=== PATIENT | female | born 1990 | race Hispanic/Latino ===

== ENCOUNTER 2018-02-05 23:23 | Observation (INO) | payer BC, SELFPAY ==
[2018-02-06] MEDS ORDERED: ONDANSETRON 4 MG/2 ML VIAL ONE ×2 (00:01→02:07)
[2018-02-06] MEDS ORDERED: KETOROLAC 30 MG/ML INJ ONE (00:01)
[2018-02-06 00:29] LABS: Absolute Lymphocytes (CBC) 3.1 K/uL (0.7-4.9); Absolute Monocytes 0.9 K/uL (0.1-1.3); Absolute Neutrophil 10.7 K/uL (1.8-8.0); Basophils % 0.4 % (0-1.3); Eosinophils % 1.2 % (0-4.4); Hematocrit 37.6 % (36.0-45.0); Lymphocytes % 20.6 % (15.3-44.8); MCH 32.4 pg (27.0-35.0); MCV 91.3 fL (80-100); MPV 8.3 fL (7.6-11.3); Monocytes % 5.8 % (3.3-12.3); RBC Red Blood Cell Count 4.12 M/uL (3.86-4.86)
[2018-02-06 00:44] LABS: Urine Blood 3+ (NEG); Urine Glucose NEGATIVE (NEG); Urine Protein 3+ (NEG); Urine Specific Gravity >1.030 (1.005-1.030); Urine pH 5.5 (5.0-7.0)
[2018-02-06 00:46] LABS: BUN Blood Urea Nitrogen 13 mg/dL (7-18); Bicarbonate 28 mmol/L (21-32); Glucose Level 134 mg/dL (74-106); Potassium 3.5 mmol/L (3.5-5.1); Sodium Level 140 mmol/L (136-145)
[2018-02-06 01:14] LABS: Urine Bacteria 20-50 /HPF (<20); Urine Culture Reflex Order NOT NEEDED; Urine RBC TNTC /HPF (NONE SEEN)
[2018-02-06] MEDS ORDERED: MORPHINE 4 MG/ML SYR ONE (02:07)
[2018-02-06] MEDS ORDERED: CEFTRIAXONE/SWI 1gm 1 GM/10 ML SYR ONE (02:07)
--- NOTE | 2018-02-06 02:27 | EDPHYS ---
Physician Documentation [facility] Name: Cinthya Diaz Age: 27 yrs Sex: Female : 1990 Arrival Date: 02/05/2018 Time: 23:28 Bed 14 Private MD: ED Physician Jett Carlos HPI: 02/05 23:51 This 27 yrs old Female presents to ER via Ambulatory with complaints of ps1 Abdominal Pain, Vomiting, Vaginal Bleeding. 23:51 has left flank pain that radiates to groin. On her cycle. Has normal amount of flow. ps1 Additionally has urinary frequency. No hx of stones. Pain rated as severe. No remitting factors, worse with movement. Denies . . 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 - Social history:: Smoking status: Patient/guardian denies using tobacco. - Ebola Screening: : Patient negative for fever greater than or equal to 101.5 degrees Fahrenheit, and additional compatible Ebola Virus Disease symptoms Patient denies exposure to infectious person Patient denies travel to an Ebola-affected area in the 21 days before illness onset. ROS: 23:51 Constitutional: Negative for fever, chills, and weight loss, Eyes: Negative for injury, ps1 pain, redness, and discharge, Cardiovascular: Negative for chest pain, palpitations, and edema, Respiratory: Negative for shortness of breath, cough, wheezing, and pleuritic chest pain, Abdomen/GI: Negative for abdominal pain, nausea, vomiting, diarrhea, and constipation, MS/Extremity: Negative for injury and deformity, Skin: Negative for injury, rash, and discoloration, Neuro: Negative for headache, weakness, numbness, tingling, and seizure, Psych: Negative for depression, anxiety, suicide ideation, homicidal ideation, and hallucinations. 23:51 : Positive for flank pain, urinary frequency, menstruation. Exam: 23:51 Constitutional: This is a well developed, well nourished patient who is awake, alert, ps1 and in no acute distress. Head/Face: Normocephalic, atraumatic. Eyes: Pupils equal round and reactive to light, extra-ocular motions intact. Lids and lashes normal. Conjunctiva and sclera are non-icteric and not injected. Chest/axilla: Normal chest wall appearance and motion. Nontender with no deformity. No lesions are appreciated. Cardiovascular: Regular rate and rhythm. No gallops, murmurs, or rubs. Normal PMI, no JVD. No pulse deficits. Respiratory: Lungs have equal breath sounds bilaterally, clear to auscultation and percussion. No rales, rhonchi or wheezes noted. No increased work of breathing, no retractions or nasal flaring. Abdomen/GI: Soft, non-tender, with normal bowel sounds. No distension or tympany. No guarding or rebound. No evidence of tenderness throughout. 23:51 Back: pain, that is very mild, of the left mid back, CVA tenderness, that is moderate. Vital Signs: 23:47 BP 126 / 64; Pulse 73; Resp 18; Temp 97.6(O); Pulse Ox 100% on R/A; Weight 65.77 kg fc (R); Height 5 ft. 0 in. (152.40 cm) (R); Pain 05/08; 11 00:09 BP 116 / 76; Pulse 56; Resp 16; Pulse Ox 99% ; bp 00:45 BP 108 / 68; Pulse 53; Resp 12; Pulse Ox 99% ; bp 01:30 BP 110 / 75; Pulse 66; Resp 14; Pulse Ox 100% ; bp 02:30 BP 100 / 71; Pulse 61; Resp 14; Pulse Ox 97% ; bp 04:00 BP 92 / 49; Pulse 83; Resp 14; Pulse Ox 99% ; bp 05:00 BP 86 / 52; Pulse 74; Resp 14; Pulse Ox 96% ; bp 05:41 BP 89 / 52; Pulse 96; Resp 20; Temp 98.0(O); Pulse Ox 100% on R/A; Pain 0/10; fc 05:48 BP 99 / 59; Pulse 86; Resp 20; Pulse Ox 100% on R/A; Pain 0/10; fc 07/10 23:47 Body Mass Index 28.32 (65.77 kg, 152.40 cm) MDM: 00:20 Patient medically screened. [facility] 02:26 Data reviewed: vital signs, nurses notes, lab test result(s), electrolytes, urinalysis, ps1 bacteruria, radiologic studies, CT scan, and as a result, I will admit patient, administer antibiotics Rocephin, administer IV fluids. 02/05 23:55 Order name: Basic Metabolic Panel; Complete Time: 00:58 ps1 02/05 23:55 Order name: CBC with Diff; Complete Time: 00:40 ps1 02/05 23:55 Order name: Stone Protocol CT ps1 02/06 00:19 Order name: Urine Dipstick--Ancillary (enter results); Complete Time: 00:46 ms 02/06 00:19 Order name: Urine --Ancillary (enter results); Complete Time: 00:46 ms 02/06 00:27 Order name: UA MICROSCOPIC; Complete Time: 01:52 bp 02/05 23:55 Order name: Urine Test (obtain specimen); Complete Time: 00:20 ps1 02/05 23:55 Order name: IV Saline Lock; Complete Time: 00:08 ps1 02/05 23:55 Order name: Labs collected and sent; Complete Time: 00:08 ps1 02/05 23:55 Order name: NPO; Complete Time: 00:08 ps1 02/05 23:55 Order name: Urine Dipstick-Ancillary (obtain specimen); Complete Time: 00:20 ps1 Administered Medications: 00:08 Drug: Ketorolac 30 mg Route: IVP; Site: right forearm; bp 00:20 Follow up: Response: Pain is decreased bp 00:08 Drug: Zofran 4 mg Route: IVP; Site: right forearm; bp 00:20 Follow up: Response: Pain is decreased bp 02:09 Drug: Rocephin - (cefTRIAXone) 1 grams Route: IVPB; Infused Over: 30 mins; Site: right bp forearm; 02:45 Follow up: IV Status: Completed infusion bp 02:10 Drug: morphine 4 mg Route: IVP; Site: right forearm; bp 02:45 Follow up: Response: Pain is decreased bp 02:10 Drug: Zofran 4 mg Route: IVP; Site: right forearm; bp 02:45 Follow up: Response: Nausea is decreased bp Disposition: 02/06/18 02:26 Hospitalization ordered by Kevin Causey for Inpatient Admission. Preliminary diagnosis are Acute cystitis with hematuria, Hydronephrosis with renal and ureteral calculous obstruction, leukocytosis. - Bed requested for Telemetry/MedSurg (Inpatient). - Status is Inpatient Admission. fc - Condition is Stable. - Problem is new. - Symptoms are unchanged. UTI on Admission? Yes Signatures: Dispatcher [employer] EDMS Minal Alfredo RN RN Rosaura Ch, RN RN Tate Espinosa RN Jett Adhikari MD MD ps1 Corrections: (The following items were deleted from the chart) 03:23 02:26 Hospitalization Ordered by Kevin Causey MD for Inpatient Admission. Preliminary mw diagnosis is Acute cystitis with hematuria; Hydronephrosis with renal and ureteral calculous obstruction; leukocytosis. Bed requested for Telemetry/MedSurg (Inpatient). Status is Inpatient Admission. Condition is Stable. Problem is new. Symptoms are unchanged. UTI on Admission? Yes. ps1 06:03 03:23 02/06/2018 02:26 Hospitalization Ordered by Kevin Causey MD for Inpatient fc Admission. Preliminary diagnosis is Acute cystitis with hematuria; Hydronephrosis with renal and ureteral calculous obstruction; leukocytosis. Bed requested for Telemetry/MedSurg (Inpatient). Status is Inpatient Admission. Condition is Stable. Problem is new. Symptoms are unchanged. UTI on Admission? Yes. clive
--- NOTE | 2018-02-06 02:27 | ER ---
Nurse's Notes [facility] Name: Cinthya Diaz Age: 27 yrs Sex: Female : 1990 Arrival Date: 02/05/2018 Time: 23:28 Bed 14 Private MD: Diagnosis: Acute cystitis with hematuria;Hydronephrosis with renal and ureteral calculous obstruction;leukocytosis Presentation: 02/05 23:44 Presenting complaint: Patient states: that she is having severe abdominal pain that fc radiates around to back. She is also having nausea and vomiting. Her period was late but she is current having a heavy menstrual flow. Transition of care: patient was not received from another setting of care. Onset of symptoms was February 05, 2018. Risk Assessment: Do you want to hurt yourself or someone else? Patient reports no desire to harm self or others. Initial Sepsis Screen: Does the patient meet any 2 criteria? No. Patient's initial sepsis screen is negative. Does the patient have a suspected source of infection? No. Patient's initial sepsis screen is negative. Care prior to arrival: None. 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 - Social history:: Smoking status: Patient/guardian denies using tobacco. - Ebola Screening: : Patient negative for fever greater than or equal to 101.5 degrees Fahrenheit, and additional compatible Ebola Virus Disease symptoms Patient denies exposure to infectious person Patient denies travel to an Ebola-affected area in the 21 days before illness onset. Screenin:48 Abuse screen: Denies threats or abuse. Nutritional screening: No deficits noted. fc Tuberculosis screening: No symptoms or risk factors identified. Fall Risk None identified. Assessment: 23:49 General: Appears in no apparent distress. uncomfortable, Behavior is calm, cooperative, bp appropriate for age. Pain: Complains of pain in pelvis. Neuro: Level of Consciousness is awake, alert, obeys commands, Oriented to person, place, time, situation, Appropriate for age. Cardiovascular: No deficits noted. Respiratory: Airway is patent Respiratory effort is even, unlabored, Respiratory pattern is regular, symmetrical. GI: Bowel sounds present X 4 quads. Abd is soft Abdomen is tender to palpation X 4 quads. : Reports urgency, vaginal bleeding that is heavy flow. EENT: No deficits noted. Derm: No deficits noted. Musculoskeletal: Circulation, motion, and sensation intact. Range of motion: intact in all extremities. 02/06 00:45 Reassessment: PT TO CT. bp 01:45 Reassessment: ALL CURRENT ORDERS COMPLETED, DISPO PENDING. bp 02:30 Reassessment: ADMIT IN PROCESS, ORDERS PENDING. bp 04:04 Reassessment: ADMIT IN PROCESS, BED ASSIGNED, ORDERS PENDING. bp 05:00 Reassessment: ADMIT IN PROCESS, PT RESTING QUIETLY, ADMIT ORDERS PENDING. bp 05:49 Reassessment: Dr Causey at bedside to talk with pt. Vital Signs: 02/05 23:47 BP 126 / 64; Pulse 73; Resp 18; Temp 97.6(O); Pulse Ox 100% on R/A; Weight 65.77 kg fc (R); Height 5 ft. 0 in. (152.40 cm) (R); Pain 10; 02/06 00:09 BP 116 / 76; Pulse 56; Resp 16; Pulse Ox 99% ; bp 00:45 BP 108 / 68; Pulse 53; Resp 12; Pulse Ox 99% ; bp 01:30 BP 110 / 75; Pulse 66; Resp 14; Pulse Ox 100% ; bp 02:30 BP 100 / 71; Pulse 61; Resp 14; Pulse Ox 97% ; bp 04:00 BP 92 / 49; Pulse 83; Resp 14; Pulse Ox 99% ; bp 05:00 BP 86 / 52; Pulse 74; Resp 14; Pulse Ox 96% ; bp 05:41 BP 89 / 52; Pulse 96; Resp 20; Temp 98.0(O); Pulse Ox 100% on R/A; Pain 0/10; fc 05:48 BP 99 / 59; Pulse 86; Resp 20; Pulse Ox 100% on R/A; Pain 0/10; fc 02/05 23:47 Body Mass Index 28.32 (65.77 kg, 152.40 cm) ED Course: 02/05 23:28 Patient arrived in ED. es 23:44 Jett Carlos MD is Attending Physician. ps1 23:46 Tate Espinosa, RN is Primary Nurse. bp 23:46 Triage completed. fc 23:47 Arm band placed on Patient placed in an exam room, on a stretcher. fc 23:48 Patient has correct armband on for positive identification. Bed in low position. Call light in reach. 02/06 00:09 Inserted saline lock: 20 gauge in right forearm, using aseptic technique. Blood bp collected. 00:[address] In Process Unspecified. EDMS 02:26 Kevin Causey MD is Hospitalizing Provider. ps1 04:02 No provider procedures requiring assistance completed. Patient admitted, IV remains in bp place. Administered Medications: 00:08 Drug: Ketorolac 30 mg Route: IVP; Site: right forearm; bp 00:20 Follow up: Response: Pain is decreased bp 00:08 Drug: Zofran 4 mg Route: IVP; Site: right forearm; bp 00:20 Follow up: Response: Pain is decreased bp 02:09 Drug: Rocephin - (cefTRIAXone) 1 grams Route: IVPB; Infused Over: 30 mins; Site: right bp forearm; 02:45 Follow up: IV Status: Completed infusion bp 02:10 Drug: morphine 4 mg Route: IVP; Site: right forearm; bp 02:45 Follow up: Response: Pain is decreased bp 02:10 Drug: Zofran 4 mg Route: IVP; Site: right forearm; bp 02:45 Follow up: Response: Nausea is decreased bp Outcome: 02:26 Decision to Hospitalize by Provider. ps1 05:41 Admitted to Med/surg accompanied by tech, room 228, with chart, Report called to Quita ochoa RN 05:41 Condition: good 05:41 Discharge instructions given to family, Instructed on the need for admit, Demonstrated understanding of instructions. 06:03 Patient left the ED. Signatures: Dispatcher [employer] EDOH Tenisha Dupree Felicia, RN DWAIN Tate Espinosa, DWAIN RN Jett Carlos MD MD ps1
[2018-02-06] MEDS ORDERED: KETOROLAC 30 MG/ML INJ IV PRN (05:59)
[2018-02-06] MEDS ORDERED: ACETAMINOPHEN 650MG/RECT SUPP RECT PRN (05:59)
[2018-02-06] MEDS ORDERED: ONDANSETRON 4 MG/2 ML VIAL IV PRN (05:59)
--- NOTE | 2018-02-06 05:59 | P.HP ---
Certification for Inpatient Patient admitted to: Inpatient With expected LOS: >2 Midnights Practitioner: I am a practitioner with admitting privileges, knowledge of patient current condition, hospital course, and medical plan of care. Services: Services provided to patient in accordance with Admission requirements found in Title 42 Section 412.3 of the Code of Federal Regulations Patient History Date of Service: 02/06/18 Reason for admission: left hydronephrosis History of Present Illness: Ms Diaz is a 27 years old woman with quite healthy past medical history, who start with severe lower abdominal pain, radiated to her back, 10/10 of intensity , constant, associated with nausea and vomiting. She also noted some blood when she went to the restroom, and she though that was her menstrual period, that is actually delayed. She denied fever but has had chills. Lab work remarkable for leukocytosis 14.9K, normal renal function, UA with increased RBC. No fever at arrival to ED. Allergies Penicillins Adverse Reaction (Mild, Verified 11/26/12 21:17) Nausea/Vomiting Home medications list reviewed: Yes Home Medications: Ascorbic Acid [Vitamin C*] 500 mg PO DAILY 07/22/13 Ferrous Sulfate [Iron] 1 PO BID 07/22/13 Vit37/Iron/Folic Acid [Prenata Chewable Tablet] 1 PO DAILY 07/22/13 Hydrocodone 5/APAP 325 [Tilden 5/325*] 1 tab PO Q6H PRN #20 tab 07/23/13 - Past Medical/Surgical History Diabetic: No Past Medical History: Reviewed- Non-Contributory Past Surgical History: Reviewed- Non-Contributory - Family History Family History: Reviewed- Non-Contributory - Social History Smoking Status: Never smoker Alcohol use: Yes CD- Drugs: No Place of Residence: Home Review of Systems 10-point ROS is otherwise unremarkable Physical Examination - Physical Exam General: Alert, In no apparent distress HEENT: Atraumatic, PERRLA, Mucous membr. moist/pink, EOMI, Sclerae nonicteric Neck: Supple, 2+ carotid pulse no bruit, No LAD, Without JVD or thyroid abnormality Respiratory: Clear to auscultation bilaterally, Normal air movement Cardiovascular: Regular rate/rhythm, Normal S1 S2 Gastrointestinal: Normal bowel sounds, Tenderness (lower abdomen radiated to left flank and back.) Musculoskeletal: No tenderness Integumentary: No rashes Neurological: Normal gait, Normal speech, Normal strength at 5/5 x4 extr, Normal tone, Normal affect Lymphatics: No axilla or inguinal lymphadenopathy - Studies Laboratory Data (last 24 hrs) 02/05/18 23:59: WBC 14.9 H, Hgb 13.3, Hct 37.6, Plt Count 351 02/05/18 23:59: Sodium 140, Potassium 3.5, BUN 13, Creatinine 0.70, Glucose 134 H Assessment and Plan - Problems (Diagnosis) (1) Hydronephrosis concurrent with and due to calculi of kidney and ureter Current Visit: Yes Status: Acute (2) Hematuria Current Visit: Yes Status: Acute Qualifiers: Hematuria type: gross Qualified Code(s): R31.0 - Gross hematuria - Plan The patient will be admitted to the hospital due to left side severe hydronephrosis secondary to 5 mm obstructive stone in her left ureterovesical junction. Will start empiric antibiotic, pain medication, IV fluids, keep her NPO for potential cystoscopy. Consult Dr Burns. - Advance Directives Does patient have a Living Will: No Does patient have a Durable POA for Healthcare: No - Code Status/Comfort Care Code Status Assessed: Yes Code Status: Full Code
[2018-02-06] MEDS ORDERED: NA CHLORIDE 0.9% 1,000 ML IV SCH (06:00)
[2018-02-06 06:18] VITALS: BMI 31.4
[2018-02-06] MEDS ORDERED: KCL 20 MEQ/100 mL IVPB 20 MEQ/100 ML BAG IV SCH (08:00)
--- NOTE | 2018-02-06 08:32 | RAD REPORT ---
EXAM DESCRIPTION: CT - Stone Protocol - 02/06/2018 4:40 am CLINICAL HISTORY: Flank pain. left flank COMPARISON: No comparisons TECHNIQUE: Axial images were obtained without oral or IV contrast. Lack of contrast limits solid org an and vascular assessment. The [id number] spans the entirety of the system partially obscuring uppermost abdomen and lung bases. Coronal reformatted images were obtained and reviewed. All CT scans are performed using dose optimization technique as appropriate and may include automated exposure control or mA/KV adjustment according to patient size. FINDINGS: The lower lung leung are clear. Small hiatal hernia is seen. Imaged portions of the liver and spleen show no suspicious findings on non-contrast imaging. The panc reas and adrenal glands are normal. No pathologic lymphadenopathy in the abdomen or pelvis. 6 mm stone is present left UVJ (800 HU) resulting and moderate to severe left hydronephrosis No bowel obstruction, free air, free fluid or abscess. Normal appendix noted. No significant bony abnormality. IMPRESSION: 6 mm stone left UVJ (800 HU) resulting in moderate to severe left hydronephrosis.
[2018-02-06] MEDS ORDERED: Ringers Lactate 1,000 ML IV ONE (13:34)
[2018-02-06] MEDS ORDERED: GENTAMICIN 100 MG/100 ML BAG 100 MG/100 ML BAG IV ONE (13:34)
--- NOTE | 2018-02-06 13:36 | CON ---
History: This is a 27-year-old woman, looks healthy, no past medical history, started to have severe low abdominal pain, left lower quadrant radiating to her back. The pain was a 10/10 in intensity ho me. She came to the emergency room, where a CT scan was done showing a 6 mm stone present in the lef t UVJ at 800 Hounsfield units causing severe left hydronephrosis. Her white count was elevated at 14 ,900. She denies fevers or chills. We recommend ureteroscopy, stone extraction, stent placement for her. She understood all the risks and benefits and wishes to proceed. Home Medications: Vitamin C 500 daily, iron, vitamins, and hydrocodone 5/325. Past Medical History: No diabetes, no high blood pressure. Family History: Noncontributory. Social History: Never smoked. No alcohol use. No drug use. She resides at home. Physical Examination: Vital Signs: 98.3, pulse 62, respirations 16, BP 102/72, sats 98% on room air. General: She appears alert, oriented, no apparent distress. HEENT: Atraumatic, normocephalic. Neck: Supple. Respiratory: Clear. Cardiovascular: S1, S2. Gastrointestinal: Normal bowel sounds. Nontender. Musculoskeletal: No tenderness. Skin: No rashes. Neurologic: She is alert and oriented x3. Normal strength. Lymphatics: No lymphadenopathy. Laboratory Studies: White count 14.9, H and H is 13 and 38, and platelet count 351. Chemistry; sodi um 140, potassium 3.5, chloride 104, carbon dioxide 28, BUN 13, creatinine 0.70. GFR greater than 90 . Glucose 134, calcium 8.9. Urine study shows too numerous to count rbc's 20-50 squamous cells, 20- 50 bacteria. Reflex culture not needed. 3+ protein. negative. Assessment: A 6 mm stone in the left ureterovesical junction causing severe hydronephrosis and pain. Plan: Plan is to do a cystoscopy, ureteroscopy, balloon dilation, stone basket removal, and stent pl acement. She understands all the general information, alternatives, and risks and wishes to proceed. MYRANDA/MARGARITA Voice ID: [id number] Report ID: [id number]
[2018-02-06] MEDS ORDERED: PROPOFOL 200 MG/20 ML VIAL IV ONE (13:45)
[2018-02-06] MEDS ORDERED: MIDAZOLAM HCL 2 MG/2 ML INJ ONE (13:46)
[2018-02-06] MEDS ORDERED: FENTANYL CITR 100 MCG/2 ML ONE (13:46)
[2018-02-06] MEDS ORDERED: LIDOCAINE 2% MPF 5 ML VIAL ONE (13:47)
[2018-02-06] MEDS ORDERED: ONDANSETRON HCL 40 MG/20 ML VIAL ONE (13:47)
[2018-02-06] MEDS: MEPERIDINE HCL 25 MG/0.5 ML ONE ×2 (15:10→15:15)
[2018-02-06 15:20] VITALS: O2SAT 98
--- NOTE | 2018-02-06 15:27 | RAD REPORT ---
EXAM DESCRIPTION: RAD - Urography Retrograde - 02/06/2018 3:15 pm CLINICAL HISTORY: ICD N20.0/N20.1 FINDINGS: The left ureter was cannulated and contrast administered. A left ureteral stent was subseq uently placed. The exam was performed by Dr. Burns. Please refer to his report for additional findings. Fluoroscopy time 26 seconds. Two fluoroscopic spot images are submitted.
--- NOTE | 2018-02-06 16:24 | PN ---
Date of Progress Note: 02/06/2018 Subjective: The patient seen and examined, chart reviewed, and case discussed with RN. The patient still having significant amount of flank pain. Review of Systems: Negative except as above. Medications: Reviewed. Objective: Vital Signs: Temperature 98.3, heart rate 72, blood pressure 102/72, respirations 16, O2 98% on room air. General: Awake, alert, oriented x3, in some mild distress. Obese female. BMI 31. CV: S1, S2. No murmurs. Regular rate and rhythm. Peripheral pulses present. Respiratory: Clear to auscultation bilaterally. No wheezing. No stridor. No use of accessory musc les Gastrointestinal: Abdomen is soft, nontender, nondistended. Positive bowel sounds. flank pain on the right. Extremities: No clubbing, cyanosis, edema. Neurologic: Nonfocal. Laboratory Data: Pending. Assessment And Plan: A 27-year-old female with; 1.Hydronephrosis, concurrent, due to calculi of kidney and ureter. We will continue with IV fluids. The patient will be seen by Dr. Burns. We will continue with empiric antibiotics and pain medicati ons. 2.Hematuria secondary to above. 3.Obesity, body mass index 31.5. 4.Gastrointestinal and deep venous thrombosis with PPI and SCDs. No chemical anticoagulation due to anticipated procedure. /MARGARITA Voice ID: [id number] Report ID: [id number]
--- NOTE | 2018-02-06 17:11 | P.DS ---
Admission Date: 02/06/18 Discharge Date: 02/06/18 Disposition: ROUTINE DISCHARGE Discharge Condition: GOOD Reason for Admission: left hydronephrosis Consultations: Dr. Burns urology Procedures: cystoscopy, stone removal, stent placement - Problems (1) Obesity (BMI 30.0-34.9) Current Visit: Yes Status: Acute Brief History of Present Illness: From H&P Ms Diaz is a 27 years old woman with quite healthy past medical history, who start with severe lower abdominal pain, radiated to her back, 10/10 of intensity , constant, associated with nausea and vomiting. She also noted some blood when she went to the restroom, and she though that was her menstrual period, that is actually delayed. She denied fever but has had chills. Lab work remarkable for leukocytosis 14.9K, normal renal function, UA with increased RBC. No fever at arrival to ED. Hospital Course: Patient is a 27-year-old female who was admitted to the hospital for hematuria secondary to ureteral stone. Patient was taken for cystoscopy stent placement and stone removal by Dr. Burns. Patient did well postoperatively. Patient was cleared for discharge. Patient's symptoms improved. She will be discharged on antibiotics pain medications. She is to follow up with urology for stent removal in a.m. Vital Signs/Physical Exam: Temp Pulse Resp BP Pulse Ox 97.6 F 54 16 104/57 L 100 02/06/18 15:24 02/06/18 15:24 02/06/18 15:24 02/06/18 15:24 02/06/18 12:00 General: Alert, In no apparent distress, Oriented x3, Obese HEENT: Atraumatic, PERRLA, EOMI Neck: Supple, JVD not distended Respiratory: Clear to auscultation bilaterally, Normal air movement Cardiovascular: No edema, Normal pulses, Regular rate/rhythm, Normal S1 S2 Gastrointestinal: Normal bowel sounds, Soft and benign, Non-distended, No tenderness Musculoskeletal: No tenderness Integumentary: No rashes Neurological: Normal speech, Normal tone, Normal affect Lymphatics: No axilla or inguinal lymphadenopathy Laboratory Data at Discharge: WBC 14.9 K/uL (4.3-10.9) H 02/05/18 23:59 Hgb 13.3 g/dL (12.0-15.0) 02/05/18 23:59 Hct 37.6 % (36.0-45.0) 02/05/18 23:59 Plt Count 351 K/uL (152-406) 02/05/18 23:59 Sodium 140 mmol/L (136-145) 02/05/18 23:59 Potassium 3.5 mmol/L (3.5-5.1) 02/05/18 23:59 BUN 13 mg/dL (7-18) 02/05/18 23:59 Creatinine 0.70 mg/dL (0.55-1.3) 02/05/18 23:59 Glucose 134 mg/dL (74-106) H 02/05/18 23:59 Home Medications: Nitrofuran Macro [Macrobid] 100 mg PO BID #6 cap 02/06/18 traMADol HCL [Ultram] 50 mg PO Q6H PRN #15 tab 02/06/18 New Medications: Nitrofuran Macro [Macrobid] 100 mg PO BID #6 cap traMADol HCL [Ultram] 50 mg PO Q6H PRN #15 tab PRN Reason: Pain Patient Discharge Instructions: f/up w PCP in 2-3 days. f/up w urologist Dr. Burns tomorrow for stent removal. Return to ER for worsening condition Diet: calorie restricted diet Activity: Ad simon Followup: Doug Burns MD [ACTIVE - CAN ADMIT] - 02/07/18 (Follow up in office tomorrow morning.) Time spent managing pt's care (in minutes): 31
[2018-02-06 17:19] VITALS: BP 104/64; TEMP 97.3
[2018-02-06] MEDS ORDERED: OXYBUTYNIN CHLORIDE 5 MG TAB PO SCH (18:00)
[2018-02-06] MEDS ORDERED: CEFTRIAXONE/SWI 1gm 1 GM/10 ML SYR IV SCH (21:00)
[2018-02-07] MEDS ORDERED: CEFTRIAXONE 1 GM/NS 50 ML 1 GM/50 ML BAG IV SCH (09:00)
== END 2018-02-06 18:20 | disposition home or self-care (01) ==
LOC: ER 23:23 → INTOOBSV 02-06 02:26 → ERHOLD 02-06 02:26 → 2ND 02-06 05:44
PROVIDERS: ADMIT Internal Medicine; ATTEND Family Medicine
PROC: 0T778DZ Dilation of Left Ureter with Intraluminal Device, Via Natural or Artificial Opening Endoscopic (ICD-10-PCS; 2018-02-06)
PROC: BT14YZZ Fluoroscopy of Kidneys, Ureters and Bladder using Other Contrast (ICD-10-PCS; 2018-02-06)
PROC: 0TC78ZZ Extirpation of Matter from Left Ureter, Via Natural or Artificial Opening Endoscopic (ICD-10-PCS; principal; 2018-02-06 14:15)
DX: N13.2 Hydronephrosis with renal and ureteral calculous obstruction (principal); E66.9 Obesity, unspecified; Z68.31 Body mass index [BMI] 31.0-31.9, adult; Z88.0 Allergy status to penicillin
CPT/HCPCS: 36415; 74176; 74420; 76377; 80048; 81003; 81015; 81025; 82360; 85025; 88300; 96365; 96375; 99285; G0378; J0696; J1580; J2175; J2250; J2405; J3010; J7030; Q9967

== ENCOUNTER 2020-10-21 22:02 | Emergency (ER) | payer BC, SELFPAY ==
[2020-10-21 22:47] LABS: Urine Blood NEGATIVE (Negative); Urine Glucose NEGATIVE (Negative); Urine Protein NEGATIVE (NEG); Urine Specific Gravity >1.030 (1.005-1.030); Urine Specific Gravity/Preg >1.030 (1.005-1.030)
[2020-10-21] MEDS ORDERED: ASPIRIN 81 MG CHEWABLE TABLET ONE (22:51)
[2020-10-21] MEDS ORDERED: LORAZEPAM 0.5 MG TABLET ONE (22:51)
[2020-10-21] MEDS ORDERED: NA CHLORIDE 0.9% 500 ML ONE (22:52)
[2020-10-21 22:58] LABS: Absolute Lymphocytes (CBC) 2.7 K/uL (0.7-4.9); Basophils % 0.7 % (0-1.3); Hematocrit 38.6 % (36.0-45.0); Lymphocytes % 23.1 % (15.3-44.8); MPV 7.9 fL (7.6-11.3)
[2020-10-21 23:07] LABS: Barbiturates NEGATIVE (NEGATIVE); Benzodiazepines NEGATIVE (NEGATIVE); Cocaine NEGATIVE (NEGATIVE); METHAMPHETAM NEGATIVE (NEGATIVE); Methadone NEGATIVE (NEGATIVE); Opiates NEGATIVE (NEGATIVE); Phencyclidine NEGATIVE (NEGATIVE); THC Cannibis NEGATIVE (NEGATIVE)
[2020-10-21 23:07] LABS: Protime INR 0.99
[2020-10-21 23:20] LABS: ALT/SGPT 64 U/L (12-78); AST/SGOT 32 U/L (15-37); Albumin 3.9 g/dL (3.4-5.0); Alkaline Phosphatase 67 U/L (45-117); BUN Blood Urea Nitrogen 15 mg/dL (7-18); Bicarbonate 28 mmol/L (21-32); Bilirubin Direct 0.1 mg/dL (0-0.2); Bilirubin Total 0.5 mg/dL (0.2-1.0); Glucose Level 96 mg/dL (74-106); Potassium 3.9 mmol/L (3.5-5.1); Protein, Total 8.3 g/dL (6.4-8.2); Sodium Level 141 mmol/L (136-145); Troponin (Emerg Dept Use Only) < 0.02 ng/mL (0.0-0.045)
--- NOTE | 2020-10-22 00:28 | EDPHYS ---
Physician Documentation [facility] Name: Cinthya Diaz Age: 29 yrs Sex: Female : 1990 Arrival Date: 10/21/2020 Time: 22:05 Bed 18 Private MD: ED Physician Stephanie Zhong HPI: 10/21 22:35 This 29 yrs old Female presents to ER via Unassigned with complaints of Chest cp Pain, Arm Problem. 22:35 The patient or guardian reports chest pain that is located primarily in the anterior cp chest wall, left. 22:35 The pain does not radiate. Associated signs and symptoms: Pertinent positives: left arm cp pain. The chest pain is described as sharp. Duration: The patient or guardian reports a single episode, that is still ongoing, but improving. 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 - Social history:: Smoking status: Reported history of juuling and/or vaping. Patient uses alcohol, only on a social basis. ROS: 22:38 Constitutional: Negative for body aches, chills, fever, poor PO intake. cp 22:38 Eyes: Negative for injury, pain, redness, and discharge. cp 22:38 Cardiovascular: Positive for chest pain, Negative for edema, palpitations. 22:38 Respiratory: Negative for cough, shortness of breath, wheezing. 22:38 Abdomen/GI: Negative for abdominal pain, nausea, vomiting, and diarrhea. Exam: 22:33 ECG was reviewed by the Attending Physician. cp 22:45 Constitutional: The patient appears in no acute distress, alert, awake, cp non-diaphoretic, non-toxic, well developed, well nourished. 22:45 Head/Face: Normocephalic, atraumatic. cp 22:45 Eyes: Periorbital structures: appear normal, Conjunctiva: normal, no exudate, no cp injection, Sclera: no appreciated abnormality, Lids and lashes: appear normal, bilaterally. 22:45 ENT: External ear(s): are unremarkable, Nose: is normal, Posterior pharynx: Airway: no cp evidence of obstruction, patent. 22:45 Chest/axilla: Inspection: normal, Palpation: is normal, no crepitus, no tenderness. 22:45 Cardiovascular: Rate: normal, Rhythm: regular, Heart sounds: murmur, not appreciated, Edema: is not appreciated, JVD: is not appreciated. 22:45 Respiratory: the patient does not display signs of respiratory distress, Respirations: normal, no use of accessory muscles, no retractions, labored breathing, is not present, Breath sounds: are clear throughout, no decreased breath sounds, no stridor, no wheezing. 22:45 Abdomen/GI: Inspection: abdomen appears normal, Palpation: abdomen is soft and non-tender, in all quadrants. 22:45 Back: pain, is absent, ROM is normal. 22:45 Neuro: Orientation: to person, place \T\ time. Mentation: is normal, Cerebellar function: is grossly normal, Motor: moves all fours, strength is normal, Sensation: is normal. Vital Signs: 22:10 BP 122 / 85; Pulse 66; Resp 16; Temp 98; Pulse Ox 100% ; Pain 7/10; rr5 10/22 00:10 BP 121 / 70; Pulse 60; Resp 18; Pulse Ox 99% ; Pain 0/10; rr5 00:45 BP 126 / 89; Pulse 62; Resp 16; Pulse Ox 100% ; rr5 MDM: 10/21 22:26 Patient medically screened. cp 23:00 Differential diagnosis: acute myocardial infarction, acute pericarditis, anxiety, cp pericarditis, pleurisy, pneumonia, pneumothorax, pulmonary embolus. 10/22 00:27 Data reviewed: vital signs, nurses notes, lab test result(s), EKG, radiologic studies, cp CT scan, plain films. 00:27 Test interpretation: by ED physician or midlevel provider: ECG, plain radiologic cp studies. Counseling: I had a detailed discussion with the patient and/or guardian regarding: the historical points, exam findings, and any diagnostic results supporting the discharge/admit diagnosis, lab results, radiology results, the need for outpatient follow up, a family practitioner, to return to the emergency department if symptoms worsen or persist or if there are any questions or concerns that arise at home. Response to treatment: the patient's symptoms have markedly improved after treatment, Patient reports pain markedly improved, and as a result, I will discharge patient. 10/21 22:27 Order name: Basic Metabolic Panel; Complete Time: 00:09 cp 10/21 21: Order name: CBC with Diff; Complete Time: 23: cp 10/21 23:09 Interpretation: Normal except: WBC 11.90; NEUT A 8.2. cp 10/21 22: Order name: LFT's; Complete Time: 00:09 cp 10/22 00:09 Interpretation: Normal except: TP 8.3; GLOB 4.4; A/G 0.9. cp 10/21 22: Order name: Magnesium; Complete Time: 00:09 cp 10/21 22:27 Order name: PT-INR; Complete Time: 23:09 cp 10/21 21: Order name: Troponin (emerg Dept Use Only); Complete Time: 00:09 cp 10/22 00:09 Interpretation: Within normal limits: TROPED < 0.02. cp 10/21 22:27 Order name: UDS; Complete Time: 23:09 cp 10/21 22:27 Order name: D-Dimer 10/21 22:43 Order name: D-Dimer; Complete Time: 23:09 EDMS 10/21 22:45 Order name: Urine Dipstick--Ancillary (enter results) tt3 10/21 22:45 Order name: Urine --Ancillary (enter results) tt3 10/21 22:48 Order name: Urine --Ancillary; Complete Time: 23:09 EDMS 10/21 22:48 Order name: Urine Dipstick-Ancillary; Complete Time: 23:09 EDMS 10/22 00:22 Interpretation: Normal except: USPGR >1.030. cp 10/21 22:27 Order name: XRAY Chest (1 view) cp 10/21 22:27 Order name: EKG; Complete Time: 22:30 cp 10/21 22:27 Order name: Cardiac monitoring; Complete Time: 23:41 cp 10/21 22: Order name: EKG - Nurse/Tech; Complete Time: 23:41 cp 10/21 22:27 Order name: IV Saline Lock; Complete Time: 23:41 cp 10/21 22:27 Order name: Labs collected and sent; Complete Time: 23:41 cp 10/21 22:27 Order name: O2 Per Protocol; Complete Time: 23:41 cp 10/21 22:27 Order name: O2 Sat Monitoring; Complete Time: 23:41 cp 10/21 23:10 Order name: CT Chest For PE Angio cp EC/25 22:33 Rate is 67 beats/min. Rhythm is regular. [place] interval is normal. QRS interval is normal. cp QT interval is normal. T waves are Inverted in lead aVR. Interpreted by me. Reviewed by me. Administered Medications: 22:40 Drug: Ativan 0.5 mg Route: PO; rr5 23:30 Follow up: Response: No adverse reaction; Marked relief of symptoms rr5 22:40 Drug: Aspirin Chewable Tablet 324 mg Route: PO; rr5 23:40 Follow up: Response: No adverse reaction rr5 22:45 Drug: NS 0.9% 500 ml Route: IV; Rate: bolus; Site: right antecubital; rr5 23:30 Follow up: Response: No adverse reaction; IV Status: Completed infusion; IV Intake: rr5 500ml 10/22 00:29 Drug: TORadol - Ketorolac 15 mg Route: IVP; Site: right antecubital; rr5 00:40 Follow up: Response: No adverse reaction rr5 Disposition: 01:46 Co-signature as Attending Physician, Stephanie Zhong MD. ma2 Disposition: 10/22/20 00:28 Discharged to Home. Impression: Other chest pain. - Condition is Stable. - Discharge Instructions: Nonspecific Chest Pain, Aspirin and Your Heart, Generalized Anxiety Disorder. - Prescriptions for Ativan 1 mg Oral Tablet - take 0.5 tablet by ORAL route every 12 hours As needed for anxiety; 10 tablet. - Medication Reconciliation Form, Thank You Letter, Antibiotic Education, Prescription Opioid Use, Work release form form. - Follow up: Private Physician; When: 1 - 2 days; Reason: Recheck today's complaints. - Problem is new. - Symptoms have improved. Signatures: Dispatcher [employer] EDMS Dung Mata PA PA cp Alzahri, Mohammad, MD MD ma2 Pozo, Newton, RN RN rr5 Corrections: (The following items were deleted from the chart) 10/21 22:42 22:30 D-Dimer ordered. EDMS EDMS 23:09 23:09 Normal except: WBC 11.90. cp cp 10/22 00:45 00:28 10/22/2020 00:28 Discharged to Home. Impression: Other chest pain. Condition is rr5 Stable. Forms are Medication Reconciliation Form, Thank You Letter, Antibiotic Education, Prescription Opioid Use. Follow up: Private Physician; When: 1 - 2 days; Reason: Recheck today's complaints. Problem is new. Symptoms have improved. cp
--- NOTE | 2020-10-22 00:28 | ER ---
Nurse's Notes [facility] Name: Cinthya Diaz Age: 29 yrs Sex: Female : 1990 Arrival Date: 10/21/2020 Time: 22:05 Bed 18 Private MD: Diagnosis: Other chest pain Presentation: 10/21 22:10 Chief complaint: Patient states: sharp chest pain and left arm numbness then tingling rr5 feeling started around 930PM after got an argument in my workplace. 22:10 Coronavirus screen: Client denies travel out of the [place] in the last 14 days. At this rr5 time, the client does not indicate any symptoms associated with coronavirus-19. Ebola Screen: Patient negative for fever greater than or equal to 101.5 degrees Fahrenheit, and additional compatible Ebola Virus Disease symptoms Patient denies exposure to infectious person. Patient denies travel to an Ebola-affected area in the 21 days before illness onset. Initial Sepsis Screen: Does the patient meet any 2 criteria? No. Patient's initial sepsis screen is negative. Does the patient have a suspected source of infection? No. Patient's initial sepsis screen is negative. Risk Assessment: Do you want to hurt yourself or someone else? Patient reports no desire to harm self or others. Onset of symptoms was October 21, 2020. 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 - Social history:: Smoking status: Reported history of juuling and/or vaping. Patient uses alcohol, only on a social basis. Screenin:10 Abuse screen: Denies threats or abuse. Denies injuries from another. Nutritional rr5 screening: No deficits noted. Tuberculosis screening: No symptoms or risk factors identified. Fall Risk IV access (20 points). Total Mitchell Fall Scale indicates No Risk (0-24 pts). Assessment: 23:01 General: Appears in no apparent distress. comfortable, Behavior is anxious. Pain: rr5 Complains of pain in chest Pain radiates to left arm Pain currently is 7 out of 10 on a pain scale. Quality of pain is described as sharp, tingling, Pain began gradually, Is intermittent. Neuro: Level of Consciousness is awake, alert, obeys commands, Oriented to person, place, time. Cardiovascular: Reports chest pain, Capillary refill < 3 seconds Patient's skin is warm and dry. Respiratory: Airway is patent Respiratory effort is even, unlabored, Respiratory pattern is regular, symmetrical. GI: No signs and/or symptoms were reported involving the gastrointestinal system. : No signs and/or symptoms were reported regarding the genitourinary system. EENT: No signs and/or symptoms were reported regarding the EENT system. Derm: Skin temperature is warm. Musculoskeletal: Capillary refill < 3 seconds. 10/22 00:00 Reassessment: Patient appears in no apparent distress at this time. Patient is alert, rr5 oriented x 3, equal unlabored respirations, skin warm/dry/pink. awaiting for CT result Patient states feeling better. Patient states symptoms have improved. 00:44 Reassessment: Patient appears in no apparent distress at this time. Patient is alert, rr5 oriented x 3, equal unlabored respirations, skin warm/dry/pink. discharge instruction given and explained without complaints made Patient states feeling better. Patient states symptoms have improved. Vital Signs: 10/21 22:10 BP 122 / 85; Pulse 66; Resp 16; Temp 98; Pulse Ox 100% ; Pain 7/10; rr5 10/22 00:10 BP 121 / 70; Pulse 60; Resp 18; Pulse Ox 99% ; Pain 0/10; rr5 00:45 BP 126 / 89; Pulse 62; Resp 16; Pulse Ox 100% ; rr5 ED Course: 10/21 22:05 Patient arrived in ED. am4 22:11 Patient has correct armband on for positive identification. Placed in gown. Bed in low rr5 position. Call light in reach. supervisor international reservations on. Pulse ox on. NIBP on. 22:14 Newton Pozo RN is Primary Nurse. rr5 22:15 Dung Mata PA is PHCP. cp 22:15 Stephanie Zhong MD is Attending Physician. cp 22:15 No provider procedures requiring assistance completed. EKG done, by ED staff, reviewed rr5 by Dung CHRISTIE. Patient maintains SpO2 saturation greater than 95% on room air. 22:25 Urine collected: clean catch specimen, clear. rr5 22:40 Inserted saline lock: 20 gauge in right antecubital area, using aseptic technique. rr5 Blood collected. 23:00 Triage completed. rr5 23:03 XRAY Chest (1 view) In Process Unspecified. EDMS 23:03 Arm band placed on right wrist. rr5 23:08 Notified Nurse Practitioner and/or Physician Coverstitch Machine Operator of a critical lab result(s), D bb Dimer of 538. Dung CHRISTIE notified. 10/22 00:08 CT Chest For PE Angio In Process Unspecified. EDMS 00:44 IV discontinued, intact, bleeding controlled, No redness/swelling at site. Pressure rr5 dressing applied. Administered Medications: 10/21 22:40 Drug: Ativan 0.5 mg Route: PO; rr5 23:30 Follow up: Response: No adverse reaction; Marked relief of symptoms rr5 22:40 Drug: Aspirin Chewable Tablet 324 mg Route: PO; rr5 23:40 Follow up: Response: No adverse reaction rr5 22:45 Drug: NS 0.9% 500 ml Route: IV; Rate: bolus; Site: right antecubital; rr5 23:30 Follow up: Response: No adverse reaction; IV Status: Completed infusion; IV Intake: rr5 500ml 10/22 00:29 Drug: TORadol - Ketorolac 15 mg Route: IVP; Site: right antecubital; rr5 00:40 Follow up: Response: No adverse reaction rr5 Intake: 10/21 23:30 IV: 500ml; Total: 500ml. rr5 Outcome: 10/22 00:28 Discharge ordered by . cp 00:44 Discharged to home ambulatory. rr5 00:44 Condition: stable 00:44 Discharge instructions given to patient, Instructed on discharge instructions, follow up and referral plans. medication usage, Demonstrated understanding of instructions, follow-up care, medications, Prescriptions given X 1. 00:45 Patient left the ED. rr5 Signatures: Dispatcher [employer] EDMaría Lopez RN RN bb Page, Corey, PA PA cp Roque, Raymond RN RN rr5 hSayy Narvaez
[2020-10-22] MEDS ORDERED: KETOROLAC 30 MG/ML INJ ONE (00:47)
[2020-10-22 04:30] VITALS: TEMP 98
[2020-10-22 04:33] VITALS: BP 126/89; O2SAT 100
--- NOTE | 2020-10-22 06:44 | EKG ---
Test Date: 2020-10-21 Test Time: 22:27:02 Supervisor Compounding And Finishing: RR MEASUREMENT RESULTS: Intervals: Rate: 67 UT: 158 QRSD: 80 QT: 374 QTc: 395 [place]: P: 65 UT: 158 QRS: 73 T: 37 INTERPRETIVE STATEMENTS: Normal sinus rhythm with sinus arrhythmia Normal ECG No previous ECG available for comparison Electronically Signed On 10-22-20 06:43:51 CDT by Severo Child
--- NOTE | 2020-10-22 09:06 | RAD REPORT ---
EXAM DESCRIPTION: RAD - Chest Single View - 10/21/2020 11:03 pm CLINICAL HISTORY: CHEST PAIN Chest pain. COMPARISON: No comparisons FINDINGS: Portable technique limits examination quality. The lungs are grossly clear. The heart is normal in size. No displaced fractures. IMPRESSION: No acute intrathoracic process suspected.
--- NOTE | 2020-10-22 21:18 | RAD REPORT ---
EXAM DESCRIPTION: Chest For Pe Angio RadLex: CT CHEST ANGIOGRAPHY WITH IV CONTRAST CLINICAL HISTORY: CHEST PAIN. COMPARISON: None. TECHNIQUE: CTA of the chest was performed following intravenous administration of iodinated contrast . Axial soft tissue and bone window, and coronal and sagittal soft tissue window reconstructions were created and sent to PACS. 3D postprocessing was performed on an independent workstation, with images sent to PACS for subsequen t review. This exam was performed according to our departmental dose-optimization program, which includes autom ated exposure control, adjustment of the mA and/or kV according to patient size and/or use of iterati ve reconstruction technique. FINDINGS: Vascular: The pulmonary arteries are well-opacified to the segmental level. No CT evidence of acute pulmonary thromboembolism. No evidence of aortic aneurysm or dissection. Lungs and pleura: No pulmonary consolidation. No pleural effusion. No pneumothorax. Mediastinum and neck: No mediastinal lymphadenopathy by CT size criteria. Unremarkable appearance of the thyroid gland. Cardiac: No cardiomegaly or pericardial effusion. Abdomen: No significant upper abdominal abnormality identified. Musculoskeletal: No concerning osseous abnormality. IMPRESSION: 1. No CTA evidence of acute pulmonary thromboembolism. 2. No pulmonary consolidation or pleural effusions. Electronically signed by: Angelia Oropeza MD 10/22/2020 12:16 AM CDT Due to temporary technical issues with the PACS/Fluency reporting system, reports are being signed by the in house radiologists without review as a courtesy to insure prompt reporting. The interpreting radiologist is fully responsible for the content of the report.
== END 2020-10-22 00:45 | disposition home or self-care (01) ==
LOC: ER 22:02
DX: R07.89 Other chest pain (principal); F17.290 Nicotine dependence, other tobacco product, uncomplicated
CPT/HCPCS: 36415; 71045; 71275; 80048; 80076; 80307; 81003; 81025; 83735; 84484; 85025; 85379; 85610; 93005; 96361; 96374; 99285; J7040; Q9967

== ENCOUNTER 2021-07-03 08:08 | Emergency (ER) | payer SELFPAY ==
--- NOTE | 2021-07-03 09:11 | EDPHYS ---
Physician Documentation [facility] Name: Cinthya Laird Age: 30 yrs Sex: Female : 1990 Arrival Date: 07/03/2021 Time: 08:10 Bed 11 Private MD: ED Physician Milan Bravo HPI: 07/03 09:24 This 30 yrs old Female presents to ER via Ambulatory with complaints of STD kb Exposure. 09:24 The patient presents with vaginal discharge, that is a small amount of white discharge, kb patient has not had similar discharge in the past. Onset: The symptoms/episode began/occurred 6 day(s) ago. Modifying factors: The symptoms are alleviated by nothing, the symptoms are aggravated by nothing. Associated signs and symptoms: Pertinent positives: vaginal discharge, Pertinent negatives: dysuria, urinary frequency. Severity of symptoms: At their worst the symptoms were mild, in the emergency department the symptoms are unchanged. The patient has not experienced similar symptoms in the past. The patient has not recently seen a physician. Pt reports she had unprotected sex and her partner told her he was having penile discharge afterwards. She started having white vaginal discharge on Sunday. Denies urinary symptoms, pelvic pain.. 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 - Social history:: Smoking status: Patient denies any tobacco usage or history of. ROS: 09:16 Constitutional: Negative for fever, chills, and weight loss. kb 09:16 : Positive for vaginal discharge. 09:16 All other systems are negative. Exam: 09:16 Constitutional: This is a well developed, well nourished patient who is awake, alert, kb and in no acute distress. Head/Face: Normocephalic, atraumatic. ENT: Moist Mucous membranes Respiratory: Respirations even and unlabored. No increased work of breathing, no retractions or nasal flaring. Abdomen/GI: Soft, non-tender. No distention Skin: Warm, dry with normal turgor. Normal color. MS/ Extremity: Pulses equal, no cyanosis. Neurovascular intact. Full, normal range of motion. Neuro: Awake and alert, GCS 15, oriented to person, place, time, and situation. Moves all extremities. Normal gait. Psych: Awake, alert, with orientation to person, place and time. Behavior, mood, and affect are within normal limits. Vital Signs: 09:10 BP 110 / 84; Pulse 78; Resp 16; Temp 97.5(TE); Pulse Ox 98% on R/A; Weight 72.57 kg; ss Height 5 ft. 0 in. (152.40 cm); Pain 0/10; 09:10 Body Mass Index 31.25 (72.57 kg, 152.40 cm) ss MDM: 09:09 Patient medically screened. kb 09:16 Data reviewed: vital signs, nurses notes. Data interpreted: Pulse oximetry: on room air kb is 98 %. Interpretation: normal. Counseling: I had a detailed discussion with the patient and/or guardian regarding: the historical points, exam findings, and any diagnostic results supporting the discharge/admit diagnosis, the need for outpatient follow up, an OB/Gyne specialist, to return to the emergency department if symptoms worsen or persist or if there are any questions or concerns that arise at home. Administered Medications: 09:24 Drug: Rocephin (cefTRIAXone) 500 mg Route: IM; Site: right gluteus; dw 09:45 Follow up: Response: No adverse reaction ss 09:24 Drug: Zithromax (azithromycin) 1 grams Route: PO; dw 09:45 Follow up: Response: No adverse reaction Disposition: 15:26 Co-signature as Attending Physician, Milan Bravo MD. rn Disposition Summary: 07/03/21 09:10 Discharge Ordered Location: Home kb Condition: Stable kb Diagnosis - Unspecified sexually transmitted disease kb Followup: kb - With: Emergency Department - When: As needed - Reason: Worsening of condition Followup: kb - With: Private Physician - When: 2 - 3 days - Reason: Recheck today's complaints, Continuance of care, Re-evaluation by your physician Discharge Instructions: - Discharge Summary Sheet kb - Preventing Sexually Transmitted Infections, Adult kb Forms: - Medication Reconciliation Form kb - Thank You Letter kb - Antibiotic Education kb - Prescription Opioid Use kb Signatures: Alisha Campo FNP-C FNP-Lisa Castorena RN RN Milan Maldonado MD MD rn Heather Salinas, DWAIN RN ss
[2021-07-03] MEDS ORDERED: CEFTRIAXONE 500 MG/VIAL ONE (09:15)
[2021-07-03] MEDS ORDERED: LIDOCAINE 1% MPF 2 ML AMPULE ONE (09:16)
[2021-07-03] MEDS ORDERED: AZITHROMYCIN 250 MG TAB ONE (09:19)
--- NOTE | 2021-07-03 10:07 | ER ---
Nurse's Notes [facility] Name: Cinthya Laird Age: 30 yrs Sex: Female : 1990 Arrival Date: 07/03/2021 Time: 08:10 Bed 11 Private MD: Diagnosis: Unspecified sexually transmitted disease Presentation: 07/03 09:10 Chief complaint: Patient states: Vaginal discharge x 6 days. Partner reports penile ss discharge. Coronavirus screen: Client denies travel out of the [place] in the last 14 days. Ebola Screen: Patient denies exposure to infectious person. Patient denies travel to an Ebola-affected area in the 21 days before illness onset. Initial Sepsis Screen: Does the patient meet any 2 criteria? No. Patient's initial sepsis screen is negative. Does the patient have a suspected source of infection? No. Patient's initial sepsis screen is negative. Risk Assessment: Do you want to hurt yourself or someone else? Patient reports no desire to harm self or others. Onset of symptoms was July 02, 2021. 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 - Social history:: Smoking status: Patient denies any tobacco usage or history of. Assessment: 09:25 Reassessment: No changes from previously documented assessment. General: Appears in no dw apparent distress. comfortable, Behavior is cooperative. Pain: Denies pain. Neuro: No deficits noted. Cardiovascular: No deficits noted. Respiratory: No deficits noted. GI: No deficits noted. : Reports discharge, from vagina that is. EENT: No deficits noted. Derm: No signs and/or symptoms reported regarding the dermatologic system. Musculoskeletal: No deficits noted. Vital Signs: 09:10 BP 110 / 84; Pulse 78; Resp 16; Temp 97.5(TE); Pulse Ox 98% on R/A; Weight 72.57 kg; ss Height 5 ft. 0 in. (152.40 cm); Pain 0/10; 09:10 Body Mass Index 31.25 (72.57 kg, 152.40 cm) ss ED Course: 08:10 Patient arrived in ED. as 09:09 Alisha Campo FNP-C is [facility]. kb 09:09 Milan Bravo MD is Attending Physician. kb 09:11 Triage completed. ss 09:11 Arm band placed on left wrist. ss 09:30 Heather Salinas, DWAIN is Primary Nurse. ss 09:45 No provider procedures requiring assistance completed. Patient did not have IV access ss during this emergency room visit. Administered Medications: 09:24 Drug: Rocephin (cefTRIAXone) 500 mg Route: IM; Site: right gluteus; dw 09:45 Follow up: Response: No adverse reaction ss 09:24 Drug: Zithromax (azithromycin) 1 grams Route: PO; dw 09:45 Follow up: Response: No adverse reaction ss Outcome: :10 Discharge ordered by MD. kb 09:45 Discharged to home ambulatory. ss 09:45 Condition: good 09:45 Discharge instructions given to patient, Instructed on discharge instructions, follow up and referral plans. Demonstrated understanding of instructions, follow-up care. 10:06 Patient left the ED. ss Signatures: Alisha Campo FNP-C FNP-Kevinb Lisa Neely RN Neelam Vivas as Heather Salinas, DWAIN RN ss
[2021-07-03 10:11] VITALS: BP 110/84; TEMP 97.5; O2SAT 98
== END 2021-07-03 10:06 | disposition home or self-care (01) ==
LOC: ER 08:08
DX: A64 Unspecified sexually transmitted disease (principal); Z88.0 Allergy status to penicillin
CPT/HCPCS: 96372; 99283; J0696

== ENCOUNTER 2022-06-05 16:46 | Emergency (ER) | payer SELFPAY ==
[2022-06-05] MEDS ORDERED: ONDANSETRON 4 MG (ODT) TAB ONE (17:04)
[2022-06-05 18:33] LABS: Urine Blood Negative (Negative); Urine Glucose Negative (Negative); Urine Protein 1+ (Negative); Urine Specific Gravity >=1.030 (1.005-1.030); Urine pH 5.5 (5.0-7.0)
--- NOTE | 2022-06-05 19:08 | EDPHYS ---
Physician Documentation [facility] Name: Cinthya Laird Age: 31 yrs Sex: Female : 1990 Arrival Date: 06/05/2022 Time: 16:49 Bed 28 Private MD: ED Physician Milan Bravo HPI: 06/05 17:01 This 31 yrs old Female presents to ER via Ambulatory with complaints of Fever, kb Back Pain, Chills. 17:01 The patient or guardian reports cough, flu symptoms, low-grade fever, myalgias. Onset: kb The symptoms/episode began/occurred 3 day(s) ago. Severity of symptoms: At their worst the symptoms were moderate, in the emergency department the symptoms are unchanged. Modifying factors: The symptoms are alleviated by nothing, the symptoms are aggravated by nothing. Associated signs and symptoms: Pertinent positives: fever, nausea, rhinorrhea. The patient has not experienced similar symptoms in the past. The patient has not recently seen a physician. Pt reports fever, chills, cough, congestion, fever and headache for 3 days. 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 - Social history:: Smoking status: Patient denies any tobacco usage or history of. Patient/guardian denies using alcohol. ROS: 17:00 Cardiovascular: Negative for chest pain, palpitations, and edema. kb 17:00 Constitutional: Positive for body aches, chills, fatigue, fever, malaise. 17:00 ENT: Positive for rhinorrhea, sinus congestion. 17:00 Respiratory: Positive for cough. 17:00 Abdomen/GI: Positive for nausea. 17:00 Neuro: Positive for headache. 17:00 All other systems are negative. Exam: 17:00 Constitutional: This is a well developed, well nourished patient who is awake, alert, kb and in no acute distress. Head/Face: Normocephalic, atraumatic. ENT: Moist Mucous membranes Cardiovascular: Regular rate and rhythm with a normal S1 and S2. No gallops, murmurs, or rubs. No pulse deficits. Respiratory: Respirations even and unlabored. No increased work of breathing. Talking in full sentences Abdomen/GI: Soft, non-tender. No distention Skin: Warm, dry with normal turgor. Normal color. MS/ Extremity: Pulses equal, no cyanosis. Neurovascular intact. Full, normal range of motion. Neuro: Awake and alert, GCS 15, oriented to person, place, time, and situation. Moves all extremities. Normal gait. Psych: Awake, alert, with orientation to person, place and time. Behavior, mood, and affect are within normal limits. Vital Signs: 16:52 BP 138 / 94; Pulse 115; Resp 18; Temp 99.7(O); Pulse Ox 98% on R/A; Weight 72.57 kg; ld1 Height 5 ft. 0 in. (152.40 cm); Pain 9/10; 18:00 BP 103 / 71; Pulse 100; Resp 16; Pulse Ox 95% on R/A; tp1 16:52 Body Mass Index 31.25 (72.57 kg, 152.40 cm) ld1 MDM: 16:55 Patient medically screened. kb 17:00 Data reviewed: vital signs, nurses notes. Data interpreted: Pulse oximetry: on room air kb is 98 %. Interpretation: normal. 17:50 Counseling: I had a detailed discussion with the patient and/or guardian regarding: the kb historical points, exam findings, and any diagnostic results supporting the discharge/admit diagnosis, lab results, the need for outpatient follow up, a family practitioner, to return to the emergency department if symptoms worsen or persist or if there are any questions or concerns that arise at home. 06/05 16:56 Order name: COVID-19 SARS RT PCR (Document "Date of Onset" if Symptomatic); Complete kb Time: 17:50 06/05 16:56 Order name: Flu; Complete Time: 17:35 kb 06/05 17:50 Order name: Urine Dipstick-Ancillary (obtain specimen); Complete Time: 18:33 kb 06/05 18:33 Order name: Urine Dipstick-Ancillary; Complete Time: 18:33 EDMS 06/05 18:35 Order name: PO challenge; Complete Time: 18:48 kb Administered Medications: 17:07 Drug: Ondansetron 4 mg Route: PO; tp1 18:23 Follow up: Response: Nausea is decreased tp1 Disposition: 06/06 17:07 Co-signature as Attending Physician, Milan Bravo MD. rn Disposition Summary: 06/05/22 19:07 Discharge Ordered Location: Home kb Condition: Stable kb Diagnosis - Acute upper respiratory infection, unspecified kb Followup: kb - With: Emergency Department - When: As needed - Reason: Worsening of condition Followup: kb - With: Private Physician - When: 2 - 3 days - Reason: Recheck today's complaints, Continuance of care, Re-evaluation by your physician Discharge Instructions: - Discharge Summary Sheet kb - Upper Respiratory Infection, Adult, [id number] kb - Viral Respiratory Infection, [id number] kb Forms: - Medication Reconciliation Form kb - Work release form kb - Thank You Letter kb - Antibiotic Education kb - Prescription Opioid Use kb Prescriptions: - Zofran 4 mg Oral Tablet - take 1 tablet by ORAL route every 6 hours As needed; 20 tablet; Refills: 0, kb Product Selection Permitted Signatures: Dispatcher [employer] EDMS Alisha Campo, CORRECTION WARDEN-C CORRECTION WARDEN-Ckb Milan Bravo MD MD rn Dibbern, Lauren RN RN ld1 Eduarda Lopez RN RN tp1
--- NOTE | 2022-06-05 19:08 | ER ---
Nurse's Notes [facility] Name: Cinthya Laird Age: 31 yrs Sex: Female : 1990 Arrival Date: 06/05/2022 Time: 16:49 Bed 28 Private MD: Diagnosis: Acute upper respiratory infection, unspecified Presentation: 06/05 16:52 Chief complaint: Patient states: N/V, fever, body aches since Sunday. Coronavirus ld1 screen: At this time, the client does not indicate any symptoms associated with coronavirus-19. Ebola Screen: No symptoms or risks identified at this time. Initial Sepsis Screen: Does the patient meet any 2 criteria? No. Patient's initial sepsis screen is negative. Does the patient have a suspected source of infection? No. Patient's initial sepsis screen is negative. Risk Assessment: Do you want to hurt yourself or someone else? Patient reports no desire to harm self or others. Onset of symptoms was June 05, 2022. 16:52 Method Of Arrival: Ambulatory ld1 16:52 Acuity: NISREEN 4 ld1 Triage Assessment: 16:52 General: Appears in no apparent distress. comfortable, Behavior is calm, cooperative, ld1 appropriate for age. Pain: Denies pain. EENT: No signs and/or symptoms were reported regarding the EENT system. Neuro: Level of Consciousness is awake, alert, obeys commands, Oriented to person, place, time, situation. Cardiovascular: Capillary refill < 3 seconds Patient's skin is warm and dry. Respiratory: Airway is patent Respiratory effort is even, unlabored. GI: Abdomen is round non-distended. : No signs and/or symptoms were reported regarding the genitourinary system. Derm: No signs and/or symptoms reported regarding the dermatologic system. Musculoskeletal: No signs and/or symptoms reported regarding the musculoskeletal system. 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 - Social history:: Smoking status: Patient denies any tobacco usage or history of. Patient/guardian denies using alcohol. Screenin:09 Abuse screen: Denies threats or abuse. Denies injuries from another. Nutritional tp1 screening: No deficits noted. Tuberculosis screening: No symptoms or risk factors identified. Fall Risk None identified. Assessment: 17:08 General: Appears in no apparent distress. comfortable, Behavior is calm, cooperative. tp1 Pain: Complains of pain in generalized body Pain currently is 9 out of 10 on a pain scale. Quality of pain is described as aching. Neuro: Level of Consciousness is awake, alert, obeys commands, Oriented to person, place, time, situation. Cardiovascular: Patient's skin is warm and dry. Respiratory: Reports cough that is productive, Airway is patent Respiratory effort is even, unlabored. GI: Abdomen is flat, non-distended, Reports nausea. GI: Reports vomiting. : No signs and/or symptoms were reported regarding the genitourinary system. EENT: Reports nasal congestion. Derm: Skin is pink, warm \T\ dry. Musculoskeletal: Circulation, motion, and sensation intact. 18:22 Reassessment: Patient appears in no apparent distress at this time. No changes from tp1 previously documented assessment. Patient and/or family updated on plan of care and expected duration. Pain level reassessed. Patient is alert, oriented x 3, equal unlabored respirations, skin warm/dry/pink. states nausea is unchanged. Vital Signs: 16:52 BP 138 / 94; Pulse 115; Resp 18; Temp 99.7(O); Pulse Ox 98% on R/A; Weight 72.57 kg; ld1 Height 5 ft. 0 in. (152.40 cm); Pain 9/10; 18:00 BP 103 / 71; Pulse 100; Resp 16; Pulse Ox 95% on R/A; tp1 16:52 Body Mass Index 31.25 (72.57 kg, 152.40 cm) ld1 ED Course: 16:49 Patient arrived in ED. mr 16:52 Alisha Camp[facility]C [facility] kb 16:52 Milan Bravo MD is Attending Physician. kb 16:52 Triage completed. ld1 16:52 Arm band placed on right wrist. ld1 16:58 Eduarda Lopez RN is Primary Nurse. tp1 17:09 Patient has correct armband on for positive identification. Bed in low position. Call tp1 light in reach. Pulse ox on. NIBP on. 17:09 No provider procedures requiring assistance completed. Patient did not have IV access tp1 during this emergency room visit. Administered Medications: 17:07 Drug: Ondansetron 4 mg Route: PO; tp1 18:23 Follow up: Response: Nausea is decreased tp1 Medication: 17:09 VIS not applicable for this client. tp1 Outcome: 19: Discharge ordered by MD. patterson 19:27 Discharged to home ambulatory. tp1 19:27 Condition: good 19:27 Discharge instructions given to patient, Instructed on discharge instructions, follow up and referral plans. medication usage, Demonstrated understanding of instructions, medications, Prescriptions given X 1. 19:27 Patient left the ED. tp1 Signatures: Alisha Campo, DUCT CLEANER-C DUCT CLEANER-Lydia Plata Lauren RN RN ld1 Eduarda Lopez RN RN tp1
[2022-06-05 20:23] VITALS: TEMP 99.7
[2022-06-05 20:24] VITALS: BP 103/71; O2SAT 95
== END 2022-06-05 19:27 | disposition home or self-care (01) ==
LOC: ER 16:46
DX: J06.9 Acute upper respiratory infection, unspecified (principal); Z20.822 Contact with and (suspected) exposure to COVID-19
CPT/HCPCS: 81003; 87804; 99283; Q0162; U0003

== ENCOUNTER 2023-06-30 15:04 | Emergency (ER) | payer SELFPAY ==
[2023-06-30 16:17] LABS: MPV 7.5 fL (7.6-11.3)
[2023-06-30 16:25] LABS: Absolute Lymphocytes (CBC) 2.4 K/uL (0.7-4.9); Hematocrit 36.3 % (36.0-45.0); Lymphocytes % 27.2 % (15.3-44.8); MCV 93.5 fL (80-100); Platelets 389 thou/uL (152-406); RBC Red Blood Cell Count 3.88 M/uL (3.86-4.86)
[2023-06-30 16:29] LABS: SARS-CoV-2 Antigen Rapid Res Negative (Negative)
[2023-06-30] MEDS ORDERED: ONDANSETRON 4 MG/2 ML VIAL ONE (16:29)
[2023-06-30] MEDS ORDERED: NA CHLORIDE 0.9% 1,000 ML ONE (16:29)
[2023-06-30] MEDS ORDERED: MECLIZINE HCL 12.5 MG TAB ONE (16:29)
--- NOTE | 2023-06-30 16:31 | RAD REPORT ---
EXAM DESCRIPTION: CT - Head Brain Wo Cont - 06/30/2023 4:21 pm CLINICAL HISTORY: DIZZINESS Headache, drowsiness COMPARISON: <Comparisons> TECHNIQUE: All CT scans are performed using dose optimization technique as appropriate and may inclu de automated exposure control or mA/KV adjustment according to patient size. FINDINGS: No intracranial hemorrhage, hydrocephalus or extra-axial fluid collection.No areas of brai n edema or evidence of midline shift. The paranasal sinuses and mastoids are clear. The calvarium is intact. IMPRESSION: No acute intracranial abnormality.
[2023-06-30] MEDS ORDERED: ACETAMINOPHEN 325 MG TABLET ONE (16:36)
[2023-06-30 16:38] LABS: Albumin 3.5 g/dL (3.4-5.0); Bilirubin Direct 0.1 mg/dL (0-0.2); Bilirubin Indirect, Calculated 0.4 mg/dL (0.2-0.8); Bilirubin Total 0.5 mg/dL (0.2-1.0); Magnesium 2.1 mg/dL (1.6-2.4); Potassium 3.6 mEq/L (3.5-5.1); Protein, Total 7.4 g/dL (6.4-8.2)
--- NOTE | 2023-06-30 17:03 | RAD REPORT ---
EXAM DESCRIPTION: RAD - Chest Single View - 06/30/2023 4:55 pm CLINICAL HISTORY: COUGH Chest pain. COMPARISON: <Comparisons> FINDINGS: Portable technique limits examination quality. The lungs are grossly clear. The heart is normal in size. No displaced fractures. IMPRESSION: No acute intrathoracic process suspected.
--- NOTE | 2023-06-30 17:08 | EDPHYS ---
Physician Documentation [facility] Name: Cinthya Laird Age: 32 yrs Sex: Female : 1990 Arrival Date: 06/30/2023 Time: 15:04 Bed 2 Private MD: ED Physician Dung Staton HPI: 06/30 16:33 This 32 yrs old Female presents to ER via Ambulatory with complaints of terry Blurred Vision, Dizziness. 16:33 The patient presents with dizziness, generalized weakness. Onset: The symptoms/episode terry began/occurred just prior to arrival. Context: occurred at work, occurred while the patient was walking, working. Modifying factors: The symptoms are alleviated by nothing, the symptoms are aggravated by nothing. Associated signs and symptoms: Pertinent positives: blurred vision, headache, nausea. Severity of symptoms: At their worst the symptoms were mild moderate in the emergency department the symptoms have improved moderately. Patient's baseline: Neuro: alert and fully oriented. The patient has not experienced similar symptoms in the past. Historical: - Allergies: 15:18 PENICILLINS; ld1 - PMHx: 15:18 None; ld1 - PSHx: 15:18 None; ld1 - Immunization history:: Adult Immunizations up to date. - Social history:: Smoking status: Patient denies any tobacco usage or history of. Patient/guardian denies using alcohol. ROS: 16:34 Constitutional: Negative for fever, chills, and weight loss, Eyes: Negative for injury, terry pain, redness, and discharge, ENT: Negative for injury, pain, and discharge, Neck: Negative for injury, pain, and swelling, Cardiovascular: Negative for chest pain, palpitations, and edema, Respiratory: Negative for shortness of breath, cough, wheezing, and pleuritic chest pain, Abdomen/GI: Negative for abdominal pain, nausea, vomiting, diarrhea, and constipation, Back: Negative for injury and pain, : Negative for injury, bleeding, discharge, and swelling, MS/Extremity: Negative for injury and deformity, Skin: Negative for injury, rash, and discoloration, Psych: Negative for depression, anxiety, suicide ideation, homicidal ideation, and hallucinations, Allergy/Immunology: Negative for hives, rash, and allergies, Endocrine: Negative for neck swelling, polydipsia, polyuria, polyphagia, and marked weight changes, Hematologic/Lymphatic: Negative for swollen nodes, abnormal bleeding, and unusual bruising, 16:34 Neuro: Positive for dizziness, headache, visual changes, weakness, Exam: 16:34 Constitutional: This is a well developed, well nourished patient who is awake, alert, terry and in no acute distress. Head/Face: Normocephalic, atraumatic. Eyes: Pupils equal round and reactive to light, extra-ocular motions intact. Lids and lashes normal. Conjunctiva and sclera are non-icteric and not injected. Cornea within normal limits. Periorbital areas with no swelling, redness, or edema. ENT: Nares patent. No nasal discharge, no septal abnormalities noted. Tympanic membranes are normal and external auditory canals are clear. Oropharynx with no redness, swelling, or masses, exudates, or evidence of obstruction, uvula midline. Mucous membranes moist. Neck: Trachea midline, no thyromegaly or masses palpated, and no cervical lymphadenopathy. Supple, full range of motion without nuchal rigidity, or vertebral point tenderness. No Meningismus. Chest/axilla: Normal chest wall appearance and motion. Nontender with no deformity. No lesions are appreciated. Cardiovascular: Regular rate and rhythm with a normal S1 and S2. No gallops, murmurs, or rubs. Normal PMI, no JVD. No pulse deficits. Respiratory: Lungs have equal breath sounds bilaterally, clear to auscultation and percussion. No rales, rhonchi or wheezes noted. No increased work of breathing, no retractions or nasal flaring. Abdomen/GI: Soft, non-tender, with normal bowel sounds. No distension or tympany. No guarding or rebound. No evidence of tenderness throughout. Back: No spinal tenderness. No costovertebral tenderness. Full range of motion. Skin: Warm, dry with normal turgor. Normal color with no rashes, no lesions, and no evidence of cellulitis. MS/ Extremity: Pulses equal, no cyanosis. Neurovascular intact. Full, normal range of motion. Neuro: Awake and alert, GCS 15, oriented to person, place, time, and situation. Cranial nerves II-XII grossly intact. Motor strength 5/5 in all extremities. Sensory grossly intact. Cerebellar exam normal. Normal gait. Psych: Awake, alert, with orientation to person, place and time. Behavior, mood, and affect are within normal limits. 16:34 ECG was reviewed by the Attending Physician. Vital Signs: 15:17 BP 121 / 86; Pulse 77; Resp 18; Temp 97.8(TE); Pulse Ox 98% on R/A; Weight 68.04 kg; ld1 Height 5 ft. 0 in. ; Pain 0/10; 15:20 BP 108 / 73; Pulse 80; Resp 17; Temp 98.1(O); Pulse Ox 99% on R/A; rs5 16:25 BP 111 / 81; Pulse 77; Resp 18; Pulse Ox 99% on R/A; rs5 17:43 BP 112 / 79; Pulse 79; Resp 17; Pulse Ox 99% on R/A; rs5 15:17 Body Mass Index 29.29 (68.04 kg, 152.4 cm) ld1 15:17 Pain Scale: Adult ld1 Jayson Coma Score: 16:36 Eye Response: spontaneous(4). Motor Response: obeys commands(6). Verbal Response: terry oriented(5). Total: 15. MDM: 15:21 Patient medically screened. terry 16:36 Differential diagnosis: cerebral vascular accident, hyponatremia, migraine, neoplasm, terry tension headache, trigeminal neuralgia, vasomotor headache. Differential Diagnosis altered mental status, flu. Differential diagnosis: cardiac arrhythmia, generalized weakness, hypovolemia, idiopathic dizziness, near-syncope, vertigo. Data reviewed: vital signs, nurses notes, lab test result(s), EKG, radiologic studies, CT scan, plain films. Consideration of Admission/Observation Escalation of care including admission/observation considered. I considered the following discharge prescriptions or medication management in the emergency department Medications were administered in the Emergency Department. See MAR. Independent interpretation of the following test(s) in the Emergency Department EKG: See my EKG interpretation above. Test considered but Not performed: MRI: no mri brain. Historians other than the Patient: pt well informed. Care significantly affected by the following chronic conditions: none. Counseling: I had a detailed discussion with the patient and/or guardian regarding the historical points, exam findings, and any diagnostic results supporting the discharge/admit diagnosis, lab results, radiology results, the need for outpatient follow up, for definitive care, a family practitioner, a neurologist. 06/30 15:48 Order name: Basic Metabolic Panel; Complete Time: 17:05 [facility] 06/30 15:48 Order name: CBC with Diff; Complete Time: 17:05 [facility] 06/30 15:48 Order name: LFT's; Complete Time: 17:05 [facility] 06/30 15:48 Order name: Magnesium; Complete Time: 17:05 [facility] 06/30 15:48 Order name: NT PRO-BNP; Complete Time: 17:05 [facility] 06/30 15:48 Order name: PT-INR; Complete Time: 17:05 [facility] 06/30 15:48 Order name: Troponin HS; Complete Time: 17:05 [facility] 06/30 15:48 Order name: Flu; Complete Time: 17:05 [facility] 06/30 15:48 Order name: SARS RAPID; Complete Time: 17:05 [facility] 06/30 15:48 Order name: Urinalysis w/ reflexes 06/30 15:48 Order name: PREGU [facility] 06/30 15:48 Order name: XRAY Chest (1 view); Complete Time: 17:05 [facility] 06/30 15:48 Order name: CT Head Brain wo Cont; Complete Time: 17:05 [facility] 06/30 15:48 Order name: EKG; Complete Time: 15:49 [facility] 06/30 15:48 Order name: Cardiac monitoring; Complete Time: 16:22 [facility] 06/30 15:48 Order name: EKG - Nurse/Tech; Complete Time: 16:22 [facility] 06/30 15:48 Order name: IV Saline Lock; Complete Time: 16:22 [facility] 06/30 15:48 Order name: Labs collected and sent; Complete Time: 16:22 [facility] 06/30 15:48 Order name: O2 Per Protocol; Complete Time: 16:22 [facility] 06/30 15:48 Order name: O2 Sat Monitoring; Complete Time: 16:23 [facility] 06/30 17:09 Order name: Misc. Order: get ua/upt if neg dc; Complete Time: 17:42 [facility] EC:34 Rate is 65 beats/min. Rhythm is regular. QRS [place] is Normal. NM interval is normal. QRS trery interval is normal. QT interval is normal. No Q waves. T waves are Normal. No ST changes noted. Clinical impression: Normal ECG and No evidence of ischemia. Interpreted by me. Reviewed by me. Administered Medications: 15:55 Drug: NS 0.9% IV 1000 ml IV at 1 bolus Per protocol; 1000 mL bolus Route: IV; Rate: 1 rs5 bolus; Site: right antecubital; 16:20 Follow up: Response: No adverse reaction rs5 15:55 Drug: Ondansetron IVP 4 mg IVP once; over 2 minutes Route: IVP; Site: right antecubital;rs5 16:20 Follow up: Response: No adverse reaction; Nausea is decreased rs5 15:55 Drug: Meclizine PO 50 mg PO once Route: PO; rs5 16:46 Follow up: Response: No adverse reaction rs5 Disposition Summary: 06/30/23 17:07 Discharge Ordered Notes: Location: Home terry Problem: new trery Symptoms: have improved terry Condition: Stable terry Diagnosis - Dizziness and giddiness - Blurry vision, binocular, improved terry Followup: terry - With: Private Physician - When: 2 - 3 days - Reason: Recheck today's complaints, Continuance of care, Re-evaluation by your physician Followup: terry - With: Niko Romano MD - When: 2 - 3 days - Reason: Recheck today's complaints, Continuance of care, Re-evaluation by your physician Discharge Instructions: - Discharge Summary Sheet terry - Dizziness terry - Near-Syncope terry - Near-Syncope, [id number] terry - Aspirin and Your Heart terry Forms: - Medication Reconciliation Form terry - Thank You Letter terry - Antibiotic Education terry - Prescription Opioid Use terry - Patient Portal Instructions terry - Leadership Thank You Letter terry - Work release form rs5 Prescriptions: - ondansetron 4 mg Oral Tablet,disintegrating - take 1 tablet ORAL route every 6-8 hours; 20 tablet; Refills: 0, Product [facility] Selection Permitted - Meclizine 25 mg Oral Tablet - take 1 tablet ORAL route every 8 hours As needed; 30 tablet; Refills: 0, [facility] Product Selection Permitted Signatures: Dispatcher [employer] Dung Colmenares MD MD cha Sims, Lauren RN RN ld1 Ranjith Wise RN RN rs5
--- NOTE | 2023-06-30 17:08 | ER ---
Nurse's Notes [facility] Name: Cinthya Laird Age: 32 yrs Sex: Female : 1990 Arrival Date: 06/30/2023 Time: 15:04 Bed 2 Private MD: Diagnosis: Dizziness and giddiness-Blurry vision, binocular, improved Presentation: 06/30 15:17 Chief complaint: Patient states: Dizziness and blurred vision to left eye began at 1300 ld1 today at work. Coronavirus screen: At this time, the client does not indicate any symptoms associated with coronavirus-19. Ebola Screen: No symptoms or risks identified at this time. Initial Sepsis Screen: Does the patient meet any 2 criteria? No. Patient's initial sepsis screen is negative. Does the patient have a suspected source of infection? No. Patient's initial sepsis screen is negative. Risk Assessment: Do you want to hurt yourself or someone else? Patient reports no desire to harm self or others. Onset of symptoms was June 30, 2023. 15:17 Method Of Arrival: Ambulatory ld1 15:17 Acuity: NISREEN 3 ld1 Triage Assessment: 15:18 General: Appears in no apparent distress. comfortable, Behavior is calm, cooperative, ld1 appropriate for age. Pain: Denies pain. EENT: Reports blurred vision in outer aspect of conjuctiva of left eye and iris of left eye. Neuro: Level of Consciousness is awake, alert, obeys commands, Oriented to person, place, time, situation. Neuro: Reports blurred vision in outer aspect of conjuctiva of left eye and iris of left eye. Cardiovascular: Capillary refill < 3 seconds Patient's skin is warm and dry. Respiratory: Airway is patent Respiratory effort is even, unlabored. GI: Abdomen is flat, non-distended. : No signs and/or symptoms were reported regarding the genitourinary system. Derm: No signs and/or symptoms reported regarding the dermatologic system. Musculoskeletal: No signs and/or symptoms reported regarding the musculoskeletal system. Historical: - Allergies: 15:18 PENICILLINS; ld1 - PMHx: 15:18 None; ld1 - PSHx: 15:18 None; ld1 - Immunization history:: Adult Immunizations up to date. - Social history:: Smoking status: Patient denies any tobacco usage or history of. Patient/guardian denies using alcohol. Screenin:25 [facility] ED Fall Risk Assessment (Adult) History of falling in the last 3 months, rs5 including since admission No falls in past 3 months (0 pts) Confusion or Disorientation No (0 pts) Intoxicated or Sedated No (0 pts) Impaired Gait No (0 pts) Mobility Assist Device Used No (0 pt) Altered Elimination No (0 pt) Score/Fall Risk Level 0 - 2 = Low Risk Oriented to surroundings, Maintained a safe environment. Abuse screen: Denies threats or abuse. Nutritional screening: No deficits noted. Tuberculosis screening: No symptoms or risk factors identified. Assessment: 15:25 General: Appears in no apparent distress. uncomfortable, Behavior is cooperative. Pain: rs5 Complains of pain in head Pain does not radiate. Pain currently is 8 out of 10 on a pain scale. Quality of pain is described as aching, Pain began 2 hours ago. Is continuous. Neuro: Level of Consciousness is awake, alert, obeys commands, Oriented to person, place, time, situation, Medical Coding Manager are equal bilaterally Moves all extremities. Gait is steady, Speech is normal, Facial symmetry appears normal, Pupils are PERRLA, Pupil Size: 3 mm Intact. Cardiovascular: Heart tones S1 S2 present Rhythm is regular. Respiratory: Airway is patent Respiratory effort is even, unlabored, Respiratory pattern is regular, symmetrical, Breath sounds are clear bilaterally. GI: Abdomen is round non-distended, Bowel sounds present X 4 quads. Abd is soft and non tender X 4 quads. Reports nausea. : No signs and/or symptoms were reported regarding the genitourinary system. EENT: Reports blurred vision in iris of left eye and outer aspect of conjuctiva of left eye since 1300. Derm: Skin is intact, Skin is dry, Skin is normal, Skin temperature is warm. Musculoskeletal: Range of motion: intact in all extremities. 16:46 Reassessment: Patient and/or family updated on plan of care and expected duration. Pain rs5 level reassessed. Patient is alert, oriented x 3, equal unlabored respirations, skin warm/dry/pink. Reassessment: Patient denies pain at this time. Patient states feeling better. Neuro: Level of Consciousness is awake, alert, obeys commands, Oriented to person, place, time, situation, Medical Coding Manager are equal bilaterally Moves all extremities. Denies blurred vision. GI: Patient currently denies nausea, vomiting. 17:30 Reassessment: No changes from previously documented assessment. rs5 Vital Signs: 15:17 BP 121 / 86; Pulse 77; Resp 18; Temp 97.8(TE); Pulse Ox 98% on R/A; Weight 68.04 kg; ld1 Height 5 ft. 0 in. ; Pain 0/10; 15:20 BP 108 / 73; Pulse 80; Resp 17; Temp 98.1(O); Pulse Ox 99% on R/A; rs5 16:25 BP 111 / 81; Pulse 77; Resp 18; Pulse Ox 99% on R/A; rs5 17:43 BP 112 / 79; Pulse 79; Resp 17; Pulse Ox 99% on R/A; rs5 15:17 Body Mass Index 29.29 (68.04 kg, 152.4 cm) ld1 15:17 Pain Scale: Adult ld1 [facility] Coma Score: 16:36 Eye Response: spontaneous(4). Motor Response: obeys commands(6). Verbal Response: terry oriented(5). Total: 15. ED Course: 15:07 Patient arrived in ED. rg4 15:18 Triage completed. ld1 15:18 Arm band placed on right wrist. ld1 15:20 Patient has correct armband on for positive identification. Bed in low position. Call rs5 light in reach. Side rails up X2. 15:21 Dung Staton MD is Attending Physician. terry 15:42 Ranjith Wise, DWAIN is Primary Nurse. rs5 16:00 Inserted saline lock: 20 gauge in right antecubital area, using aseptic technique. rs5 Blood collected. 16:23 CT Head Brain wo Cont In Process Unspecified. EDMS 16:57 XRAY Chest (1 view) In Process Unspecified. EDMS 17:07 Niko Romano MD is Referral Physician. terry 17:44 No provider procedures requiring assistance completed. rs5 18:11 IV discontinued, intact, bleeding controlled, No redness/swelling at site. Pressure rs5 dressing applied. Administered Medications: 15:55 Drug: NS 0.9% IV 1000 ml IV at 1 bolus Per protocol; 1000 mL bolus Route: IV; Rate: 1 rs5 bolus; Site: right antecubital; 16:20 Follow up: Response: No adverse reaction rs5 15:55 Drug: Ondansetron IVP 4 mg IVP once; over 2 minutes Route: IVP; Site: right antecubital;rs5 16:20 Follow up: Response: No adverse reaction; Nausea is decreased rs5 15:55 Drug: Meclizine PO 50 mg PO once Route: PO; rs5 16:46 Follow up: Response: No adverse reaction rs5 Medication: 16:47 VIS not applicable for this client. rs5 Outcome: 17:07 Discharge ordered by . terry 18:10 Discharged to home ambulatory, rs5 18:10 Condition: stable 18:10 Discharge instructions given to patient, Instructed on discharge instructions, follow up and referral plans. medication usage, Demonstrated understanding of instructions, follow-up care, medications, Prescriptions given X 1, 18:11 Patient left the ED. rs5 Signatures: Dispatcher [employer] EDMS Dung Staton MD MD cha Garcia, Rubi rg4 Lily Buckley RN RN ld1 Ranjith Wise RN RN rs5 Corrections: (The following items were deleted from the chart) 15:45 15:25 EENT: Reports blurred vision in iris of left eye and outer aspect of conjuctiva rs5 of left eye since 1100 rs5
[2023-06-30 17:55] LABS: Specific Gravity 1.032 (1.005-1.030)
[2023-06-30 17:59] LABS: Specific Gravity > 1.030 (1.005-1.030); Urine Bacteria 20-50 /HPF (<20); Urine Bilirubin NEGATIVE (Negative); Urine Blood Negative (Negative); Urine Clarity Extremely Turbid (Clear); Urine Color Light-Yellow (Yellow); Urine Glucose NEGATIVE (Negative); Urine Mucus 2+ /HPF (None Seen); Urine Protein TRACE (Negative); Urine RBC None Seen /HPF (None Seen); Urine Urobilinogen Normal (Normal)
[2023-06-30 18:32] VITALS: TEMP 98.1; O2SAT 99
[2023-06-30 18:34] VITALS: BP 112/79
--- NOTE | 2023-07-03 13:39 | EKG ---
Test Date: 2023-06-30 Test Time: 15:58:12 Multiple Resaw Operator: TARIQ MEASUREMENT RESULTS: Intervals: Rate: 65 MD: 154 QRSD: 88 QT: 362 QTc: 376 [place]: P: 64 MD: 154 QRS: 54 T: 41 INTERPRETIVE STATEMENTS: Normal sinus rhythm with sinus arrhythmia Normal ECG No previous ECG available for comparison Electronically Signed On 07-03-23 13:29:58 LIE DETECTOR OPERATOR by Robe Knowles
== END 2023-06-30 18:11 | disposition home or self-care (01) ==
LOC: ER 15:04
DX: R42 Dizziness and giddiness (principal); H53.8 Other visual disturbances; H51.9 Unspecified disorder of binocular movement
CPT/HCPCS: 36415; 70450; 71045; 80048; 80076; 81001; 81025; 83735; 83880; 84484; 85025; 85610; 87804; 87811; 93005; 96374; 99284; J2405; J7030; J8597

== ENCOUNTER → 2023-09-10 | Emergency (ER) | payer OTHER, SELFPAY ==
[~2023-09-10] MED LIST: HYDROCODONE/APAP 5/325 MG TAB ONE
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
[2023-09-10 11:01] VITALS: BP 112/74; TEMP 98; O2SAT 99
== END ==
LOC: ER 08:49
DX: M54.2 Cervicalgia (principal); V49.49XA Driver injured in collision with other motor vehicles in traffic accident, initial encounter; Z88.0 Allergy status to penicillin
CPT/HCPCS: 72125